=== PATIENT | female | born 2000 | race Caucasian/White ===

== ENCOUNTER 2025-01-28 15:21 | Emergency (ER) | payer OTHER ==
[~2025-01-28] VITALS: Ht 170.2 cm; Wt 68.0 kg
[2025-01-28 15:23] VITALS: TEMP 36.7; O2SAT 100
[2025-01-28 16:36] LABS: BASOPHILS % 0.5 % (0.0-2.0); EOSINOPHILS % 0.5 % (0.0-5.0); HEMATOCRIT. 41.8 % (36.0-48.0); HEMOGLOBIN. 14.1 g/dL (12.0-16.0); LYMPHOCYTES % 31.1 % (20.0-50.0); MEAN CORPUSCULAR HEMOGLOBIN 29.4 pg (28.0-32.0); MEAN CORPUSCULAR HGB CONC 33.9 g/dL (31.0-37.0); MEAN CORPUSCULAR VOLUME 86.8 fL (81.0-99.0); MEAN PLATELET VOLUME 8.6 fl (7.4-10.4); MONOCYTES % 8.6 % (2.0-8.0); NEUTROPHILS % 59.3 % (40.0-76.0); PLATELET 213 x1000/uL (130-400); RED BLOOD CELL COUNT 4.81 mill/uL (4.2-5.4); RED CELL DISTRIBUTION WIDTH 12.4 % (11.6-14.6); WHITE BLOOD COUNT 6.9 x1000/uL (4.5-11.0)
[2025-01-28 16:45] LABS: PROTHROMBIN TIME 10.4 sec (9.6-11.0)
[2025-01-28] MEDS: KETOROLAC 30MG/ML VIAL IM ONE (16:46)
[2025-01-28 16:47] LABS: CHLORIDE 106 mEq/L (98-107); SODIUM 138 mEq/L (136-145)
[2025-01-28 16:48] LABS: CALCIUM 9.1 mg/dL (8.7-10.4); CARBON DIOXIDE 25 mEq/L (21-32)
[2025-01-28 16:53] LABS: CLARITY URINE CLOUDY (CLEAR); COLOR URINE YELLOW (YELLOW); CREATININE 0.6 mg/dL (0.6-1.0); GLUCOSE 97 mg/dL (70-105); GLUCOSE URINE NEGATIVE (NEGATIVE); KETONES URINE TRACE (NEGATIVE); LEUKOCYTE ESTERASE URINE TRACE (NEGATIVE); NITRITE URINE POSITIVE (NEGATIVE); OCCULT BLOOD URINE NEGATIVE (NEGATIVE); PROTEIN URINE NEGATIVE (NEGATIVE); SPECIFIC GRAVITY URINE 1.023 (1.005-1.030); UREA NITROGEN BLOOD 9 mg/dL (9-23)
[2025-01-28 16:55] LABS: ALANINE AMINOTRANSFERASE 21 IU/L (10-49); ALBUMIN 4.4 g/dL (3.2-4.8); ASPARTATE AMINOTRANSFERASE 19 IU/L (<34); BILIRUBIN DIRECT 0.1 mg/dL (<=3.0); BILIRUBIN TOTAL 0.6 mg/dL (0.1-1.0); PROTEIN TOTAL 7.9 g/dL (6.0-8.3)
[2025-01-28 16:59] LABS: HCG SCREEN NEGATIVE
[2025-01-28 17:08] VITALS: BP 137/65; PULSE 77; RESP 16
[2025-01-28] MEDS: HYDROCODONE/ACETAMINOPHEN 10/325MG TABLET PO ONE (17:08)
[2025-01-28 17:09] LABS: BACTERIA URINE 4+; RBC URINE NONE SEEN /hpf (0-2); SQUAMOUS EPITHELIAL CELL URINE FEW /lpf (RARE/1+)
[2025-01-28] MEDS: ONDANSETRON 4MG ODT PO ONE (19:27)
[2025-01-28] MEDS ORDERED: KETO10TA2 MT (20:19)
[2025-01-28] MEDS ORDERED: HYDR-4009 MT (20:19)
[2025-01-28] MEDS ORDERED: ONDA-239 PO (20:19)
[2025-01-29] MEDS ORDERED: NITR100C MT (19:52)
== END 2025-01-28 20:35 | disposition home or self-care (01) ==
LOC: ER 15:21
DX: K60.2 Anal fissure, unspecified (principal); M54.50 Low back pain, unspecified; R32 Unspecified urinary incontinence; R20.0 Anesthesia of skin
CPT/HCPCS: 99285; 72148; 80076; 80048; 81003; 81025; 84703; 85025; 85610; 36415; 96372; J1885; Q0162